=== PATIENT | male | born 1945 | race Caucasian/White ===

== ENCOUNTER 2021-07-13 08:10 | Emergency (ER) | payer MEDICARE, OTHER ==
[~2021-07-13] VITALS: Ht 172.7 cm; Wt 100.0 kg
[~2021-07-13 08:10] MED LIST: CANASA1000 MG RE; ENALAPRIL10 MG PO; LIALDA1.2 GM PO; PRAVASTATIN40 MG PO; PREDNISONE20 MG PO; PREDNISONE5 MG PO
[2021-07-13] MEDS ORDERED: METFORMIN500 M2 PO (08:38)
[2021-07-13] MEDS ORDERED: METOPROL TAR25 MG PO (08:39)
[2021-07-13] MEDS ORDERED: ASPIRIN81 MG PO (08:40)
[2021-07-13] MEDS ORDERED: ATORVASTATIN CA40 MG PO (08:40)
[2021-07-13] MEDS ORDERED: PLAVIX75 MG PO (08:40)
[2021-07-13 10:49] VITALS: BP 154/69
[2021-07-13] MEDS ORDERED: LORTAB 5/3255 MG PO (10:56)
[2021-07-13] MEDS ORDERED: FLEXERIL5 M1 PO (10:56)
[2021-07-13] MEDS ORDERED: GABAPENTIN100 MG PO (10:56)
== END 2021-07-13 10:49 | disposition home or self-care (01) ==
LOC: ED 08:10
DX: M54.32 Sciatica, left side (principal); E11.9 Type 2 diabetes mellitus without complications; I10 Essential (primary) hypertension; E78.5 Hyperlipidemia, unspecified; Z79.84 Long term (current) use of oral hypoglycemic drugs; Z95.1 Presence of aortocoronary bypass graft

== ENCOUNTER 2022-09-10 17:40 | Observation (INO) | payer MEDICARE ==
[2022-09-10] VITALS (9 sets, daily range): BP systolic 117–185; BP diastolic 64–103
[~2022-09-10] VITALS: Ht 172.7 cm; Wt 95.0 kg
[~2022-09-10 17:40] MED LIST changes: +ASPIRIN81 MG PO; +ATORVASTATIN CA40 MG PO; +FLEXERIL5 M1 PO; +GABAPENTIN100 MG PO; +LORTAB 5/3255 MG PO; +METFORMIN500 M2 PO; +METOPROL TAR25 MG PO; +PLAVIX75 MG PO
[2022-09-10] MEDS ORDERED: XELJANZ5 MG (17:56)
[2022-09-10 19:05] LABS: BASO% 0.6 % (0-3); EOS% 1.7 % (0-8); HEMATOCRIT 42.9 % (39.0-50.0); HEMOGLOBIN 13.3 g/dl (14.0-18.0); IMMATURE GRANULOCYTES 1.4 % (0.0-5.0); LYMPH% 13.5 % (15-41); MEAN CELL VOLUME 96.6 fL CALC (80.0-100.0); MONO% 11.6 % (2-13); NEUT# 6.78 thou/uL (1.82-7.42); NEUT% 71.2 % (42-76); RED BLOOD COUNT 4.44 mill/uL (4.70-6.10); RED CELL DISTRI WIDTH 12.9 % (11.5-15.5)
--- NOTE | 2022-09-10 19:17 | NUR ---
ASSUMED CARE OF THE PT AT THIS TIME
[2022-09-10 19:18] LABS: ALBUMIN 4.2 g/dL (3.2-5.0); ALKALINE PHOSPHATASE 85 u/l (38-126); ANION GAP 14 (6-22 (CALC)); BILIRUBIN, TOTAL 0.4 mg/dL (0.2-1.3); BUN 20 mg/dL (8-23); BUN/CREATININE RATIO 21 (12-20 (CALC)); CARBON DIOXIDE 20 mmol/l (22-30); CHLORIDE 107 mmol/l (95-108); GFR FOR AFR.AMER. > 60 ML/MIN (>=60 (CALC)); GFR OTHER RACES > 60 ML/MIN (>=60 (CALC)); LIPASE 137 u/l (23-300); POTASSIUM 4.5 mmol/l (3.5-5.1); SGOT/AST 25 u/l (19-48); SODIUM 136 mmol/l (137-146); TOTAL PROTEIN 6.8 g/dL (6.3-8.2)
--- NOTE | 2022-09-10 22:35 | NUR ---
Admission Note Report Given to: JODIE JUDGE Transported by: Stretcher Transported with: Nurse Patent IV O2 Cell Tender Helper Location: [facility] [place] ROOM 260
--- NOTE | 2022-09-10 22:52 | NUR ---
PT ARRIVED TO MS @ 2252 VIA WHEELCHAIR, ACCOMPANIED BY ER NURSE AND . PT ORIENTED TO ROOM AND USE OF CALL LIGHT. PT A&O X3. EVEN AND UNLABORED RESPIRATIONS; CLEAR LUNG SOUNDS UPON AUSCULTATION. PT STATES: "I GET VERY WINDED IF I WALK". O2 SAT 94% ON ELVA. TELEMETRY IN PLACE, UNIT #19. IV SITE FLUSHED: #20G TO LEFT AC, HEALTHY AND PATENT. ACTIVE BOWEL SOUNDS X4 QUADRANTS. SKIN IS INTACT. SAFETY PRECAUTIONS IN PLACE WITH CALL LIGHT IN REACH.
--- NOTE | 2022-09-11 03:34 | NUR ---
PT RESTING WITH EYES CLOSED. NO SIGNS OF DISTRESS OR PAIN NOTED. NO VOICED NEEDS AT THIS TIME. SAFETY PRECAUTIONS IN PLACE WITH CALL LIGHT IN REACH.
[2022-09-11 04:02] VITALS: BP 125/61
[2022-09-11 06:56] VITALS: BP 148/71
[2022-09-11 08:55] LABS: BASO% 0.4 % (0-3); EOS% 1.2 % (0-8); HEMATOCRIT 41.4 % (39.0-50.0); HEMOGLOBIN 12.7 g/dl (14.0-18.0); IMMATURE GRANULOCYTES 1.1 % (0.0-5.0); LYMPH% 9.2 % (15-41); MEAN CELL VOLUME 96.3 fL CALC (80.0-100.0); MEAN CORPUSCULAR HGB 29.5 pG CALC (26.0-32.0); MEAN CORPUSCULAR HGB CONC 30.7 g/dL CAL (32.0-36.0); MONO% 9.8 % (2-13); NEUT# 5.72 thou/uL (1.82-7.42); NEUT% 78.3 % (42-76); RED BLOOD COUNT 4.3 mill/uL (4.70-6.10)
[2022-09-11 09:29] LABS: ALBUMIN 3.9 g/dL (3.2-5.0); ALKALINE PHOSPHATASE 82 u/l (38-126); ANION GAP 11 (6-22 (CALC)); BUN 14 mg/dL (8-23); BUN/CREATININE RATIO 15 (12-20 (CALC)); CARBON DIOXIDE 23 mmol/l (22-30); CHLORIDE 105 mmol/l (95-108); GFR FOR AFR.AMER. > 60 ML/MIN (>=60 (CALC)); GFR OTHER RACES > 60 ML/MIN (>=60 (CALC)); POTASSIUM 4.2 mmol/l (3.5-5.1); SGOT/AST 23 u/l (19-48); SODIUM 136 mmol/l (137-146); TOTAL PROTEIN 6.2 g/dL (6.3-8.2)
[2022-09-11 09:35] LABS: BILIRUBIN, TOTAL 0.7 mg/dL (0.2-1.3)
[2022-09-11 10:50] VITALS: BP 135/58
[2022-09-11 14:22] VITALS: BP 149/74
--- NOTE | 2022-09-11 15:47 | NUR ---
NURSE TOOK PATIENT ON A 6 MINUTE WALK TEST. PATIENT ON RA O2 96% WHILE WALKING DROPPED DOWN TO 92% BUT DID NOT SUSTAIN. PATIENT DID NOT REPORT FEELING SOB WHILE WALKING. PATIENT SPOUSE AT BEDSIDE. WILL CONTINUE TO MONITOR.
--- NOTE | 2022-09-11 15:49 | NUR ---
PATIENT HAD BLE US DONE AWAITING RESULT FOR POSSIBLE DISCHARGE.
[2022-09-11] MEDS ORDERED: ELIQUIS5 MG PO (16:16)
--- NOTE | 2022-09-11 17:38 | NUR ---
PATIENT DISCHARGED. INSTRUCTIONS GIVEN WITH SPOUSE PRESENT STATED UNDERSTANDING. PIV AND HEART MONITOR REMOVED. PATIENT ATE DINNER BEFORE DISCHARGE. PATIENT TAKEN DOWN STAIR BY WHEELCHAIR.
== END 2022-09-11 17:38 | disposition home or self-care (01) ==
LOC: ED 17:40 → ED-I 21:33 → ED 21:44 → MS2 21:45
PROVIDERS: Emergency Medicine; Nurse Practitioner Family; ADMIT Internal Medicine; ATTEND Internal Medicine
DX: I26.99 Other pulmonary embolism without acute cor pulmonale (principal); I10 Essential (primary) hypertension; E11.9 Type 2 diabetes mellitus without complications; I25.10 Atherosclerotic heart disease of native coronary artery without angina pectoris; E78.5 Hyperlipidemia, unspecified; K51.90 Ulcerative colitis, unspecified, without complications; I25.2 Old myocardial infarction; Z95.1 Presence of aortocoronary bypass graft; Z79.84 Long term (current) use of oral hypoglycemic drugs; Z20.822 Contact with and (suspected) exposure to COVID-19
CPT/HCPCS: G0378; J1650; Q9967